=== PATIENT | female | born 1955 | race Caucasian/White ===

== ENCOUNTER → 2020-09-10 | Outpatient (CLI) | payer MEDICARE ==
[~2020-09-10] MED LIST: AMBIEN10 MG PO; AMITIZA24 MCG PO; ARICEPT10 MG PO; ATENOLOL25 MG PO; BELSOMRA15 MG PO; BONIVA150 MG PO; BUSPIRONE HCL10 MG PO; CETIRIZINE HCL10 MG PO; DEMADEX20 MG PO; DICLOFENAC 1% GEL TOP; FAMOTIDINE20 MG PO; FOLIC ACID 1 MG1 MG PO; GLUCOTROL 10 MG10 MG PO; GLUCOTROL5 MG PO; KLONOPIN2 MG PO; LIPITOR TAB 1010 MG PO; LISINOPRIL10 MG PO; LYRICA300 MG PO; NEUPRO1 EAC1 TOP; NEXIUM20 MG PO; NORVASC 5 MG TAB5 MG PO; NORVASC5 MG PO; OZEMPIC SQ; PAXIL20 MG PO; PERCOCET 10-321 EACH PO; PHENERGAN 12.12.5 M1 PO; PRILOSEC OTC20 MG PO; PRINIVIL10 MG PO; REQUIP2 MG PO; SEROQUEL50 MG PO
== END ==
LOC: KOH-I 16:25
DX: M79.672 Pain in left foot (principal); R93.6 Abnormal findings on diagnostic imaging of limbs
CPT/HCPCS: 73630

== ENCOUNTER → 2020-09-24 | Outpatient (CLI) | payer MEDICARE | LOC: KOH-I 13:45 | DX: I73.9 Peripheral vascular disease, unspecified (principal); S86.012A Strain of left Achilles tendon, initial encounter | CPT/HCPCS: 73718; 93926 ==

== ENCOUNTER → 2020-10-10 | Outpatient (CLI) | payer MEDICARE ==
[2020-10-10 13:30] LABS: HEMOGLOBIN 12.8 gm/dl (12.3-15.3); RED BLOOD COUNT 4.68 M/UL (4.00-5.10); WHITE BLOOD COUNT 7.8 K/UL (4.5-11.0)
== END ==
LOC: OPSV2 11:30
PROVIDERS: Podiatrist Foot & Ankle Surgery
DX: Z01.812 Encounter for preprocedural laboratory examination (principal)
CPT/HCPCS: 36415; 80048; 83036; 85027

== ENCOUNTER → 2020-10-11 | Day surgery (SDC) | payer MEDICARE, OTHER ==
[~2020-10-11] VITALS: Ht 165.1 cm; Wt 108.0 kg
== END | disposition home or self-care (01) ==
LOC: OR 05:50
DX: S86.012A Strain of left Achilles tendon, initial encounter (principal); M77.32 Calcaneal spur, left foot; M77.52 Other enthesopathy of left foot and ankle; M67.874 Other specified disorders of tendon, left ankle and foot; M21.6X2 Other acquired deformities of left foot; G89.29 Other chronic pain; Z20.822 Contact with and (suspected) exposure to COVID-19; K21.9 Gastro-esophageal reflux disease without esophagitis; E78.5 Hyperlipidemia, unspecified; Z87.891 Personal history of nicotine dependence; M79.7 Fibromyalgia; E11.9 Type 2 diabetes mellitus without complications; Z90.49 Acquired absence of other specified parts of digestive tract
CPT/HCPCS: 73620; 73650; 76000; 82962; C1713; J0690; J1100; J1885; J2001; J2405; J2704; J2710; J2795; J3010; J3370; J7030; J7120; Q4133